=== PATIENT | female | born 1970 | race Caucasian/White ===

== ENCOUNTER 2018-01-12 19:00 | Outpatient (CLI) | payer BC ==
[2014-05-02 06:04] VITALS: BMI 329.9
[~2018-01-12 19:00] MED LIST: HYDROCODONE-APA1 TAB PO; LEVAQUIN500 MG PO; LEVOTHROID75 MCG PO; MEDROL DOSE PACK4 MG PO; NORCO 5/325 TAB1 TA1 PO; NORVASC5 MG PO; PHENERGAN25 M1 PO; PRILOSEC20 MG PO; PROVENTIL HFA6.7 GM INH; SINGULAIR10 MG PO; ZOFRAN4 MG PO
== END 2018-01-12 23:59 | disposition home or self-care (01) ==
LOC: D.MAMMO 19:00
DX: Z12.31 Encounter for screening mammogram for malignant neoplasm of breast (principal)

== ENCOUNTER 2018-09-23 15:52 | Emergency (ER) | payer MEDICAID ==
[~2018-09-23] VITALS: Ht 144.8 cm; Wt 71.8 kg
[2018-09-23 16:16] VITALS: Ht 144.8 cm; Wt 71.8 kg
[2018-09-23] MEDS ORDERED: KLOR-CON 88 MEQ PO (16:19)
[2018-09-23] MEDS ORDERED: CLEOCIN HCL300 MG PO (17:13)
[2018-09-23 17:35] VITALS: BP 130/76
== END 2018-09-23 17:36 | disposition home or self-care (01) ==
LOC: D.ER 15:52
DX: L02.511 Cutaneous abscess of right hand (principal)

== ENCOUNTER 2018-10-24 15:22 | Inpatient (IN) | payer MEDICAID ==
[~2018-10-24] VITALS: Ht 144.8 cm; Wt 69.5 kg
[~2018-10-24 15:22] MED LIST changes: +CLEOCIN HCL300 MG PO; +KLOR-CON 88 MEQ PO
[2018-10-24 15:44] LABS: BASOPHILS 0.1 % (0-2); EOSINOPHILS 0 % (0-7); HEMATOCRIT 37.2 % (36.0-48.0); HEMOGLOBIN 12.8 g/dL (12-16); IMMATURE GRANULOCYTES 0.2 % (0-5); LYMPHOCYTES 12.3 % (15-50); MCH 29.4 pg (26.0-34.0); MCHC 34.4 g/dL (31.0-37.0); MCV 85.5 fL (80.0-100.0); MONOCYTES 7.8 % (2-11); NEUTROPHILS 79.6 % (40-80); PLATELET COUNT 255 10x3/uL (130-400); RBC 4.35 10x6/uL (4.00-5.40); RDW 13.3 % (11.5-14.5)
[2018-10-24 16:07] LABS: ALBUMIN 3.3 g/dL (3.4-5.0); ALKALINE PHOSPHATASE 155 U/L (46-116); ALT (SGPT) 55 U/L (10-68); CALC OSMOLALITY 268 mosm/kg (275-300); CALCIUM 8.4 mg/dL (8.5-10.1); CARBON DIOXIDE 23.8 mmol/L (21.0-32.0); CHLORIDE - SERUM 101 mmol/L (98-107); CREATININE - SERUM 0.9 mg/dL (0.6-1.3); GLUCOSE 106 mg/dL (74-106); POTASSIUM - SERUM 3.4 mmol/L (3.5-5.1); PROTEIN - SERUM 7.7 g/dL (6.4-8.2); SODIUM 135 mmol/L (136-145); UREA NITROGEN 9 mg/dL (7-18); eGFR NON AFRICAN AMERICAN 72 mL/min (90-120)
[2018-10-24 16:09] LABS: AMYLASE - SERUM 29 U/L (25-115); LIPASE 81 U/L (73-393)
[2018-10-24 16:10] LABS: TROPONIN-I < 0.017 ng/mL (0.000-0.060)
[2018-10-24 16:47] LABS: APPEARANCE HAZY (CLEAR); BILIRUBIN NEGATIVE (NEGATIVE); COLOR YELLOW (YELLOW); GLUCOSE NEGATIVE (NEGATIVE); KETONE NEGATIVE (NEGATIVE); NITRITE POSITIVE (NEGATIVE); PROTEIN TRACE mg/dL (NEGATIVE); UROBILINOGEN NORMAL (NORMAL)
[2018-10-24 16:48] LABS: BACTERIA MANY /hpf (NONE SEEN); MUCUS <1+ /lpf (NONE SEEN); RED CELLS - URINE 0-5 /hpf (0-5)
[2018-10-24 19:40] VITALS: BP 114/66
--- NOTE | 2018-10-24 22:01 | NUR ---
PATIENT TO FLOOR VIA WHEELCHAIR, A/O X 4, UP AB STEPHANY. DENIES PAIN AT THIS TIME. IV TO R AC, NS AT 100 ML/HR, DRSG C/D/I. NO REDNESS OR EDEMA NOTED. BREATHING EVEN AND UNLABORED. VITALS STABLE. DENIES FURTHER NEEDS AT THIS TIME. FALL PRECAUTIONS IN PLACE. BED LOWERED AND LOCKED. CL IN REACH. NYA CT.
[2018-10-25] VITALS (7 sets, daily range): BP systolic 101–140; BP diastolic 64–77; Ht 144.8 cm; Wt 69.5 kg
--- NOTE | 2018-10-25 05:00 | NUR ---
CALLED SHANTEL CAMPOS AND ASKED IF SHE COULD PULL NEW MEDICATION SYNTHROID. ROSINA CAMPOS STATED THAT SHE WOULD NOT PULL MEDICATION BECUASE IS WAS DUE AT 0600 AND PHARMACY WOULD BE HERE AT 0600 TO VERIFY IT.
--- NOTE | 2018-10-25 05:30 | NUR ---
ROSINA SHANTEL CAMPOS ON FLOOR AT THIS TIME. ASKED IF SHE WOULD PULL MEDICATION SYNTHROID FOR ME TO GIVE PT. MEDICATION A NEW MED AND NEEDS TO BE PULLED BY SHANTEL CAMPOS DUE TO NOT BEING VERIFIED YET. ROSINA STATED THAT SHE WOULD NOT PULL MEDICATION EVEN THOUGH SHE WAS ON THE FLOOR AT THE TIME.
[2018-10-25 05:59] LABS: BASOPHILS 0.1 % (0-2); EOSINOPHILS 0.1 % (0-7); HEMATOCRIT 33.6 % (36.0-48.0); HEMOGLOBIN 11.3 g/dL (12-16); IMMATURE GRANULOCYTES 0.1 % (0-5); MCH 28.8 pg (26.0-34.0); MCHC 33.6 g/dL (31.0-37.0); MCV 85.5 fL (80.0-100.0); MEAN PLATELET VOLUME 10.4 fL (7.4-10.4); MONOCYTES 10.2 % (2-11); NEUTROPHILS 79.5 % (40-80); PLATELET COUNT 238 10x3/uL (130-400); RBC 3.93 10x6/uL (4.00-5.40); RDW 13.4 % (11.5-14.5); WBC 8.6 10x3/uL (4.8-10.8)
[2018-10-25 06:28] LABS: CALC OSMOLALITY 278 mosm/kg (275-300); CALCIUM 8.1 mg/dL (8.5-10.1); CHLORIDE - SERUM 105 mmol/L (98-107); CREATININE - SERUM 0.8 mg/dL (0.6-1.3); GLUCOSE 117 mg/dL (74-106); MAGNESIUM - SERUM 2.1 mg/dL (1.8-2.4); PHOSPHOROUS 3.1 mg/dL (2.5-4.9); POTASSIUM - SERUM 3.6 mmol/L (3.5-5.1); SODIUM 140 mmol/L (136-145); UREA NITROGEN 11 mg/dL (7-18); eGFR NON AFRICAN AMERICAN 82 mL/min (90-120)
[2018-10-25 10:55] LABS: % SATURATION 6 % (15-55); IRON 20 ug/dl (35-150); TOTAL IRON BIND CAPACITY 308 ug/dl (260-445); UNSAT IRON BIND CAPACITY 288 ug/dl (150-375)
--- NOTE | 2018-10-25 13:02 | NUR ---
A/A/OX4. STATES HAS SOME PAIN IN RIGHT SIDE AND FLANK AREA BUT DECLINES PAIN MED AT PRESENT TIME. NO REQUESTS VOICED. ASSESSMENT COMPLETED, IV PATENT TO RIGHT AC WITHOUT REDNESS OR EDEMA AT SITE. PT STATES SHE SELF CATHS 3X DAILY AT HOME AND ORDER RECEIVED FROM ROSE MARIE RIVAS TO CONTINUE THIS. WILL CONTINUE POC. BED IN LOW POSITION AND CALL LIGHT IN REACH.
--- NOTE | 2018-10-25 13:57 | NUR ---
I have reviewed this patient and I concur with the Shift Assessment completed by the Licensed Practical Nurse today this shift.
--- NOTE | 2018-10-25 19:47 | NUR ---
EVENING ROUNDS MADE. PT SITTING UP IN BED RESTING. DENIES PAIN AT THIS TIME. ORANGE JUICE PROVIDED. NO FURTHER CONCERNS AT THIS TIME. IV TO R AC, PATENT, GOLD C/D/I, NS @ 125. NO FURTHER CONCERNS AT THIS TIME. BED LOWERED AND LOCKED. CL IN REACH. WILL CTM.
[2018-10-26] VITALS: BP 121/76
--- NOTE | 2018-10-26 03:27 | NUR ---
I have reviewed this patient and I concur with the Shift Assessment completed by the Licensed Practical Nurse today this shift.
[2018-10-26 04:00] VITALS: BP 133/70
[2018-10-26 04:08] LABS: BASOPHILS 0.2 % (0-2); EOSINOPHILS 1.2 % (0-7); HEMOGLOBIN 9.8 g/dL (12-16); IMMATURE GRANULOCYTES 0.2 % (0-5); LYMPHOCYTES 19.2 % (15-50); MCH 28.7 pg (26.0-34.0); MCHC 33.8 g/dL (31.0-37.0); MEAN PLATELET VOLUME 10.5 fL (7.4-10.4); MONOCYTES 15.3 % (2-11); NEUTROPHILS 63.9 % (40-80); RBC 3.41 10x6/uL (4.00-5.40); RDW 13.4 % (11.5-14.5)
[2018-10-26 04:09] LABS: PLATELET COUNT 180 10x3/uL (130-400); WBC 5.1 10x3/uL (4.8-10.8)
[2018-10-26 04:23] LABS: CALC OSMOLALITY 274 mosm/kg (275-300); CALCIUM 7.7 mg/dL (8.5-10.1); CARBON DIOXIDE 24.3 mmol/L (21.0-32.0); CHLORIDE - SERUM 107 mmol/L (98-107); CREATININE - SERUM 0.7 mg/dL (0.6-1.3); GLUCOSE 117 mg/dL (74-106); PHOSPHOROUS 2.2 mg/dL (2.5-4.9); POTASSIUM - SERUM 3.9 mmol/L (3.5-5.1); SODIUM 138 mmol/L (136-145); UREA NITROGEN 8 mg/dL (7-18); eGFR NON AFRICAN AMERICAN > 90 mL/min (90-120)
--- NOTE | 2018-10-26 08:26 | NUR ---
PT AWAKE AND ORIENTED SITTING ON THE BED, FAMILY AT BEDSIDE. PT IS IN PLEASANT MOOD. REPORTS NO COMPLAINTS/CONCERNS/QUESTIONS AT THIS TIME. CL IN REACH, SRX2.
[2018-10-26 08:38] VITALS: BP 121/73
[2018-10-26 12:20] VITALS: BP 119/71
[2018-10-26 15:42] LABS: CKMB 0.2 U/L (0.0-3.6); CREATINE KINASE 39 UL (21-215); TROPONIN-I 0.017 ng/mL (0.000-0.060)
[2018-10-26 16:56] VITALS: BP 137/82
--- NOTE | 2018-10-26 18:14 | NUR ---
I have reviewed this patient and I concur with the Shift Assessment completed by the Licensed Practical Nurse today this shift.
--- NOTE | 2018-10-26 19:43 | NUR ---
GREETED PATIENT AND INTRODUCED MYSELF. PATIENT IS LAYING IN BED WATCHING TV. RESPIRATIONS EVEN. NO S/S OF DISTRESS. STATES PAIN IS 5/10 IN CHEST AND SIDE. SAYS PAIN IS JUST MORE UNCOMFORTABLE THAN ACTUAL PAIN. WANTS TO WAIT ON PRN PAIN MEDICATION AT THIS TIME. CALL LIGHT IN REACH.
[2018-10-26 20:00] VITALS: BP 124/74
[2018-10-26 20:51] LABS: CREATINE KINASE 36 UL (21-215)
[2018-10-26 20:55] LABS: TROPONIN-I < 0.017 ng/mL (0.000-0.060)
[2018-10-27] VITALS: BP 115/78; BP 151/47
[2018-10-27 01:25] LABS: BASOPHILS 0.6 % (0-2); EOSINOPHILS 4.3 % (0-7); HEMOGLOBIN 9.6 g/dL (12-16); IMMATURE GRANULOCYTES 0.3 % (0-5); LYMPHOCYTES 27.5 % (15-50); MCH 30.4 pg (26.0-34.0); MCHC 33.1 g/dL (31.0-37.0); MEAN PLATELET VOLUME 9.8 fL (7.4-10.4); MONOCYTES 13.6 % (2-11); NEUTROPHILS 53.7 % (40-80); PLATELET COUNT 181 10x3/uL (130-400); RBC 3.16 10x6/uL (4.00-5.40); RDW 13.7 % (11.5-14.5)
[2018-10-27 01:26] LABS: MCV 91.8 fL (80.0-100.0); WBC 8.7 10x3/uL (4.8-10.8)
[2018-10-27 01:56] LABS: CALC OSMOLALITY 277 mosm/kg (275-300); CALCIUM 7.8 mg/dL (8.5-10.1); CARBON DIOXIDE 25.1 mmol/L (21.0-32.0); CHLORIDE - SERUM 108 mmol/L (98-107); CKMB 0.1 U/L (0.0-3.6); CREATINE KINASE 41 UL (21-215); CREATININE - SERUM 0.7 mg/dL (0.6-1.3); GLUCOSE 125 mg/dL (74-106); MAGNESIUM - SERUM 2.1 mg/dL (1.8-2.4); PHOSPHOROUS 2.8 mg/dL (2.5-4.9); POTASSIUM - SERUM 4.1 mmol/L (3.5-5.1); SODIUM 140 mmol/L (136-145); TROPONIN-I < 0.017 ng/mL (0.000-0.060); UREA NITROGEN 8 mg/dL (7-18); eGFR NON AFRICAN AMERICAN > 90 mL/min (90-120)
--- NOTE | 2018-10-27 02:22 | NUR ---
PATIENT RESTING QUIETLY LAYING ON RIGHT SIDE. RESPIRATIONS EVEN. NO S/S OF DISTRESS. SR UP X 2. BED IN LOWEST POSITION. CALL LIGHT IN REACH.
[2018-10-27 04:00] VITALS: BP 152/77
[2018-10-27 08:20] VITALS: BP 131/77
--- NOTE | 2018-10-27 08:21 | NUR ---
PT AWAKE AND ORIENTED, NO COMPLAINTS/CONCERNS/QUESTIONS THIS MORNING. WOULD LIKE TO GO HOME IF POSSIBLE. CL IN REACH, SRX2.
--- NOTE | 2018-10-27 14:09 | NUR ---
I have reviewed this patient and I concur with the Shift Assessment completed by the Licensed Practical Nurse today this shift.
[2018-10-27 16:45] VITALS: BP 123/73
--- NOTE | 2018-10-27 18:42 | NUR ---
PT AWAKE AND ORIENTED, HOPEFULL TO GO HOME TOMRROW. NO COMPLAINTS/CONCERNS/QUESTIONS AT THIS TIME, CL IN REACH, SRX2.
--- NOTE | 2018-10-27 19:40 | NUR ---
REPORT RECIEVED AND ROUNDING COMPLETE. PATIENT LAYING IN BED WATCHING TV. PATIENT HAS A RIGHT AC THAT IS RUNNING NS, NO S/SX OF INFILTRATION OR INFECTION. PATIENT HAS NO NEEDS AT THIS TIME AND IS SHOWING NO S/SX OF DISTRESS. CALL LIGHT WIHTIN REACH AND BED IN LOWEST POSITION.
[2018-10-27 20:00] VITALS: BP 134/75
[2018-10-28] VITALS: BP 133/66; BP 138/78
--- NOTE | 2018-10-28 02:24 | NUR ---
PATIENT LAYING IN BED ON RIGHT SIDE. EYES CLOSED BREATHING EVEN AND UNLABORED. NO S/SX OF DISTRESS. CALL LIGHT WHEN REACH BED IN LOWEST POSITION.
--- NOTE | 2018-10-28 03:35 | NUR ---
I have reviewed this patient and I concur with the Shift Assessment completed by the Licensed Practical Nurse today this shift.
[2018-10-28 05:07] LABS: BASOPHILS 0.2 % (0-2); HEMATOCRIT 32.4 % (36.0-48.0); LYMPHOCYTES 30.3 % (15-50); MCH 28.6 pg (26.0-34.0); MEAN PLATELET VOLUME 10.1 fL (7.4-10.4); MONOCYTES 12.5 % (2-11); RDW 13.2 % (11.5-14.5)
[2018-10-28 05:11] LABS: MCV 84.2 fL (80.0-100.0); PLATELET COUNT 272 10x3/uL (130-400); RBC 3.85 10x6/uL (4.00-5.40); WBC 4.5 10x3/uL (4.8-10.8)
[2018-10-28 05:15] LABS: CALC OSMOLALITY 277 mosm/kg (275-300); CALCIUM 8.5 mg/dL (8.5-10.1); CARBON DIOXIDE 25.1 mmol/L (21.0-32.0); CHLORIDE - SERUM 107 mmol/L (98-107); CREATININE - SERUM 0.7 mg/dL (0.6-1.3); GLUCOSE 117 mg/dL (74-106); MAGNESIUM - SERUM 1.9 mg/dL (1.8-2.4); PHOSPHOROUS 3.5 mg/dL (2.5-4.9); SODIUM 139 mmol/L (136-145); eGFR NON AFRICAN AMERICAN > 90 mL/min (90-120)
--- NOTE | 2018-10-28 05:15 | NUR ---
PATEINT CALLED ME INTO ROOM, PIV IN RIGHT AC BURNING AND LEAKING. PLACED NOEW PIV IN RIGHT HAND. STICK X2. 22 GAUGE. PATIEN TOLERATED WELL. REMOVED PIV FROM RIGHT AC CATH INTACTED AND NO BLEEDING NOTED.
[2018-10-28 05:16] LABS: UREA NITROGEN 11 mg/dL (7-18)
[2018-10-28 08:44] VITALS: BP 136/82
--- NOTE | 2018-10-28 09:44 | NUR ---
PT AWAKE AND ORIENTED, LYING IN BED RESTING. PT IS HOPEFUL TO BE GOING HOME TODAY. NO COMPLAINTS/QUESTIOSN OR CONCERNS AT THIS TIME, CL IN REACH, SRX2. NO FAMILY PRESENT THIS A.M.
--- NOTE | 2018-10-28 10:00 | NUR ---
I have reviewed this patient and I concur with the Shift Assessment completed by the Licensed Practical Nurse today this shift.
[2018-10-28] MEDS ORDERED: LEVAQUIN750 MG PO (10:28)
[2018-10-28] MEDS ORDERED: INDOCIN25 MG PO (10:29)
[2018-10-28] MEDS ORDERED: PROBIOTIC BLEN1 EACH PO (10:30)
--- NOTE | 2018-10-28 11:26 | NUR ---
I/V OUT TIP INTACT. PT REQUESTED TO LEAVE RIGHT AFTER LUNCH, OBLIGED. HERE TO TAKE HER RIGHT AFTER LUNCH. CL IN REACH, SRX2.
--- NOTE | 2018-10-28 12:32 | NUR ---
PT AMBULATED OUT VIA SELF. DENIED WHEELCHAIR.
--- NOTE | 2018-10-29 08:26 | MORECARE ---
CASE MANAGEMENT DISCHARGE SUMMARY PATIENT: NARINDER HANEY UNIT: [id number] ADM DATE: 10/24/18 AGE: 47 : 74 SEX: F ROOM/BED: D.2102 AUTHOR: MIKI RIZZO PHYSICIAN: REFERRING PHYSICIAN: DIVINE SPENCE MD DATE OF SERVICE: 10/29/18 Discharge Plan Patient Name: [facility]IND[facility]ANEY [facility] [facility] 1970 Planned Disposition: Home Anticipated Discharge Date: 10/28/18 Discharge Date: 10/28/2018 Expected LOS: 4 Initial Reviewer: [email or web address] Initial Review Date: 10/29/2018 Generated: 10/29/18 9:26 am Patient Name: NARINDER HANEY Page [id number] at 0826 All edits/amendments must be made on the electronic document DICTATION DATE: 10/29/18825 MEMBERSHIP COORDINATOR: LING 10/29/18825 RPT#: [id number] DC DATE:10/28/18 STATUS: DIS IN [facility] [address] [place] [address] END OF REPORT
== END 2018-10-28 12:32 | disposition home or self-care (01) | DRG 690 ==
LOC: D.ER 15:22 → D.M2 19:53
PROVIDERS: Family Medicine; ADMIT Family Medicine Adult Medicine; ATTEND Family Medicine Adult Medicine
DX: N12 Tubulo-interstitial nephritis, not specified as acute or chronic (principal); E87.1 Hypo-osmolality and hyponatremia; E87.6 Hypokalemia; I10 Essential (primary) hypertension; E03.9 Hypothyroidism, unspecified; J45.909 Unspecified asthma, uncomplicated; D64.9 Anemia, unspecified; B96.1 Klebsiella pneumoniae [K. pneumoniae] as the cause of diseases classified elsewhere; N39.0 Urinary tract infection, site not specified; B96.20 Unspecified Escherichia coli [E. coli] as the cause of diseases classified elsewhere; M94.0 Chondrocostal junction syndrome [Tietze]